=== PATIENT | male | born 1945 | race Hispanic/Latino ===

== ENCOUNTER 2022-01-31 06:35 | Day surgery (SDC) | payer MEDICARE ==
[2022-01-31] MEDS ORDERED: ASPIRIN EC 325 MG TAB PO NR (06:52)
[2022-01-31] MEDS ORDERED: SODIUM CHLORIDE 0.9% 500 ML 500 ML IV SCH (07:00)
[2022-01-31 07:31] LABS: Basophils # (Auto) 0.1 K/mm3 (0.0-0.1); Basophils % (Auto) 1.2 % (0.0-1.8); Eosinophils # (Auto) 0.2 K/mm3 (0.0-0.4); Eosinophils % (Auto) 3.1 % (0.0-4.3); Hematocrit 47.5 % (35.5-45.6); Hemoglobin 15.7 gm/dl (11.8-15.2); Lymphocytes # (Auto) 1.5 K/mm3 (1.2-5.4); Lymphocytes % (Auto) 19.5 % (13.4-35.0); Mean Corpuscular HGB Conc 33 % (32-34); Mean Corpuscular Volume 89 fl (84-94); Monocytes # (Auto) 0.6 K/mm3 (0.0-0.8); Monocytes % (Auto) 7.9 % (0.0-7.3); Platelet Count 328 K/mm3 (140-440); Red Blood Count 5.32 M/mm3 (3.65-5.03); Red Cell Distribution Width 13.7 % (13.2-15.2)
[2022-01-31 07:41] LABS: INR 0.94 (0.87-1.13)
[2022-01-31 07:43] LABS: BUN/Creatinine Ratio 24; Blood Urea Nitrogen 19 mg/dL (9-20); Calcium 9.5 mg/dL (8.4-10.2); Hemolysis Index 6
[2022-01-31] MEDS ORDERED: HEPARIN/NS 5000 UNIT/500ML 1,000 ML IR ONE (08:24)
[2022-01-31] MEDS ORDERED: MIDAZOLAM 2 MG/2 ML INJ ONE (08:24)
[2022-01-31] MEDS ORDERED: HEPARIN 10,000 UNITS/10 ML VIAL ONE (08:24)
[2022-01-31] MEDS ORDERED: fentaNYL 100 MCG/2 ML INJ ONE (08:25)
[2022-01-31] MEDS ORDERED: NITROGLYCERIN SYRINGE 3 ML ONE (08:25)
[2022-01-31] MEDS ORDERED: VERAPAMIL 5 MG/2 ML INJ ONE (08:25)
[2022-01-31] MEDS ORDERED: LIDOCAINE (1%) 10 MG/1 ML VIAL 20 ML MDV ONE (08:26)
--- NOTE | 2022-01-31 09:37 | Cardiac Catherization Report ---
DATE OF PROCEDURE: 01/31/2022 CARDIAC CATHETERIZATION REFERRING PHYSICIAN: Dr. Raciel Blank. INDICATIONS FOR PROCEDURE: The patient is a pleasant 76-year-old gentleman with recurrent chest pain, referred for left heart catheterization. Risks, benefits, potential alternatives explained at length prior to obtaining informed consent. PROCEDURE IN DETAIL: The patient was brought to rd lab technician in a postabsorptive state, prepped and draped in sterile fashion. Golden's test in right hand is normal. 2 mL of 2% lidocaine used to anesthetize the right wrist. A standard 6-Indonesian hydrophilic sheath used to cannulate the right radial artery via modified Seldinger technique. All exchanges performed to exchange a J-tip guidewire. JL 3.5 catheter was used to engage the left main. No dampening or ventricularization. Cineangiography performed in multiple projections. JR4 catheter used to cross the aortic valve under fluoroscopic guidance. Left ventriculography performed in their projections via hand injections, catheter flushed. Manual pullback performed with continuous pressure monitoring. Catheter used to engage the right coronary. No dampening or ventricularization. Cineangiography performed in multiple projections. Next, catheter removed from the body of wire, sheath removed. Manual pressure used to achieve hemostasis. I directly supervised the administration of fentanyl and Versed for moderate sedation from 9:00 a.m. to 9:20 a.m. No immediate complications. DATA: Aortic pressure is 110/60, LV pressure is 110, LVEDP of 10 mmHg. Left ventriculography reveals normal systolic performance, estimated ejection fraction 55-60%. No evidence of aortic stenosis. CORONARY ANATOMY: This is a right dominant system. There is a dual ostium of the LAD and left circumflex. No significant disease in the LAD or diagonal system. NEVAEH 3 flow throughout. No significant disease in the left circumflex system diminutive to AV groove circumflex, large OM trunk. Right coronary is a large vessel, courses AV groove, distally bifurcates into posterior and posterolateral branches. No discrete stenoses noted. CONCLUSIONS: 1. No angiographic evidence of significant epicardial coronary artery disease in this right dominant system. 2. Normal left ventricular systolic performance, estimated ejection fraction 55-60%. 3. No evidence of aortic stenosis. 4. Normal LVEDP. RECOMMENDATION: The patient is clinically stable, chest pain free. Standard radial care. Results of procedure explained to the patient and family. All questions and concerns were addressed. Follow up with Dr. Blank in the office. TID: [id number] RECEIPT: [id number] SBM/GO
--- NOTE | 2022-01-31 11:17 | Short Stay Summary ---
Short Stay Documentation Date of service: 01/31/22 - History H&P: obtained from office - Allergies and Medications Current Medications: Allergies No Known Allergies Allergy (Verified 01/31/22 06:50) Home Medications Medication Instructions Recorded Confirmed Last Taken Type Amlodipine Besylate/Benazepril 1 each PO DAILY 01/31/22 01/31/22 01/30/22 History [Amlodipine-Benazepril 10-40 mg] Aspirin/Acetaminophen/Caffeine 2 each PO QID 01/31/22 01/31/22 01/30/22 History [Goody's Ex-Str Powder Packet] Oxymetazoline HCl [Long Acting 1 spray NS BID 01/31/22 01/31/22 01/30/22 History Nasal [place]] Active Medications Sodium Chloride (Nacl 0.9% 500 Ml) 500 mls @ 50 mls/hr IV DIRECT ZELDA Stop: 01/31/22 16:59 Last Admin: 01/31/22 07:43 Dose: 50 mls/hr - Physical exam Integumentary: other (Dressing clean dry and intact with no signs of bleeding or hematoma) - Brief post op/procedure progress note Date of procedure: 01/31/22 Pre-op diagnosis: chest pain Post-op diagnosis: other (Normal coronaries) Anesthesia: local Estimated blood loss: minimal - Hospital course Hospital course: Patient presents today for cardiac cath due to recurrent chest pain. Patient tolerated procedure well without complications. Patient to be discharged home and follow-up with Dr. Bailey as an outpatient - Disposition Condition at discharge: Good Disposition: 01 HOME / SELF CARE / HOMELESS - Discharge Diagnoses (1) Chest pain Status: Acute (2) History of CVA (cerebrovascular accident) Status: Acute (3) History of OK (myocardial infarction) Status: Acute Short Stay Discharge Plan Activity: advance as tolerated Diet: low fat, low cholesterol, low salt Wound: keep clean and dry, per your surgeon's advice Follow up with: SHANIKA BROWN MD [Primary Care Provider] - 7 Days KENDALL MORA MD [Staff Physician] - 02/22/22 11:20 am (Patient follow-up with Dr. Bailey on 02/22/2022 at 11:15 AM at our [place] location. Phone #[phone])
[2022-01-31 12:06] VITALS: BP 111/72
--- NOTE | 2022-02-01 10:48 | Electrocardiograph Report ---
[facility] Test Date: 2022-01-31 Test Time: 08:02:55 Pat Name: Manjinder STUART Department: Room: Gender: M Prosthodontist: MIMI : 1945 Requested By: JUAN C BROWN Order Number: [id number] Reading MD: Juan C Brown Measurements Intervals [place] Rate: 68 P: -4 NH: 167 QRS: -33 QRSD: 119 T: -17 QT: 410 QTc: 437 Interpretive Statements Sinus rhythm Nonspecific intraventricular conduction delay Nonspecific T abnormalities, inferior leads No previous ECG available for comparison Electronically Signed On 02-01-2022 10:47:53 EDT by Juan C Brown
== END 2022-01-31 12:45 | disposition home or self-care (01) ==
LOC: CATHLABREC 06:35
PROVIDERS: ATTEND Internal Medicine
DX: R07.89 Other chest pain (principal); I25.2 Old myocardial infarction; M19.90 Unspecified osteoarthritis, unspecified site; Z87.891 Personal history of nicotine dependence; Z79.899 Other long term (current) drug therapy; Z79.82 Long term (current) use of aspirin; Z98.890 Other specified postprocedural states; Z86.73 Personal history of transient ischemic attack (TIA), and cerebral infarction without residual deficits
CPT/HCPCS: 36415; 80048; 85025; 85610; 85730; 93005; 93458; 99156; C1894; J1644; J1815; J2250; J3010; J7040; Q9967

== ENCOUNTER 2022-03-05 16:43 | Emergency (ER) | payer MEDICARE ==
[2022-03-05] MEDS ORDERED: ONDANSETRON 4 MG/2 ML INJ IV ONE (18:01)
[2022-03-05] MEDS ORDERED: MORPHINE 4 MG/1 ML INJ IV ONE ×2 (18:01→20:16)
[2022-03-05] MEDS ORDERED: SODIUM CHLORIDE 0.9% 1000 ML 1,000 ML IV ONE (18:01)
--- NOTE | 2022-03-05 18:07 | Emergency Department Report ---
<XOCHITL TUBBS - Last Filed: 03/05/22 18:03> ED Abdominal Pain HPI - General Chief Complaint: Abdominal Pain Stated Complaint: LOWER RT QUAD PAIN Time Seen by Provider: 03/05/22 17:55 Source: EMS Mode of arrival: Stretcher Limitations: No Limitations - History of Present Illness Initial Comments: Patient is 76 years old male with history of stroke and recent hernia repair at [facility] by Dr. Schroeder. Surgery was done on February 28 of this year. Patient brought to the emergency room via EMS from home for evaluation of sudden onset of right upper and lower abdominal pain that radiated down to his groin area. Patient denied any fever or chills. Patient is also complaining of bilateral lower extremity swelling since surgery. He denied any chest pain or shortness of breath. MD Complaint: abdominal pain -: This morning Location: RUQ, RLQ Radiation: none Migration to: no migration Quality: sharp Associated Symptoms: denies other symptoms - Related Data Home Medications Medication Instructions Recorded Confirmed Last Taken Amlodipine Besylate/Benazepril 1 each PO DAILY 01/31/22 01/31/22 03/05/22 07:00 [Amlodipine-Benazepril 10-40 mg] Aspirin/Acetaminophen/Caffeine 2 each PO QID 01/31/22 01/31/22 03/05/22 12:15 [Natividad's Ex-Str Powder Packet] Oxymetazoline HCl [Long Acting 1 spray NS BID 01/31/22 01/31/22 03/05/22 06:00 Nasal [place]] Previous Rx's Medication Instructions Recorded Last Taken Type Omeprazole Magnesium [PriLOSEC Otc] 20 mg PO QDAY 30 Days #30 tab NS 03/05/22 Unknown Rx Ondansetron [Zofran Odt] 4 mg PO Q8HR 5 Days #15 tab.rapdis 03/05/22 Unknown Rx NS Allergies Allergy/AdvReac Type Severity Reaction Status Date / Time No Known Allergies Allergy Verified 01/31/22 06:50 ED Review of Systems Comment: All other systems reviewed and negative Constitutional: denies: chills, fever Respiratory: denies: cough, shortness of breath, SOB with exertion, SOB at rest Cardiovascular: denies: chest pain, palpitations Gastrointestinal: abdominal pain. denies: nausea, vomiting, diarrhea, constipation, hematemesis, melena, hematochezia Musculoskeletal: denies: back pain Neurological: denies: headache, weakness, numbness, paresthesias, confusion ED Past Medical Hx - Past Medical History Hx Hypertension: Yes Hx Heart Attack/AMI: Yes Hx Arthritis: Yes Additional medical history: mi - Social History Smoking Status: Never Smoker - Medications Home Medications: Home Medications Medication Instructions Recorded Confirmed Last Taken Type Amlodipine Besylate/Benazepril 1 each PO DAILY 01/31/22 01/31/22 03/05/22 07:00 History [Amlodipine-Benazepril 10-40 mg] Aspirin/Acetaminophen/Caffeine 2 each PO QID 01/31/22 01/31/22 03/05/22 12:15 History [Natividad's Ex-Str Powder Packet] Oxymetazoline HCl [Long Acting 1 spray NS BID 01/31/22 01/31/22 03/05/22 06:00 History Nasal [place]] Omeprazole Magnesium [PriLOSEC Otc] 20 mg PO QDAY 30 Days #30 tab NS 03/05/22 Unknown Rx Ondansetron [Zofran Odt] 4 mg PO Q8HR 5 Days #15 tab.rapdis 03/05/22 Unknown Rx NS ED Physical Exam - General Limitations: No Limitations General appearance: alert, in no apparent distress - Head Head exam: Present: atraumatic, normocephalic, normal inspection - Eye Eye exam: Present: normal appearance - ENT ENT exam: Present: normal exam, normal orophraynx, mucous membranes moist - Neck Neck exam: Present: normal inspection, full ROM. Absent: tenderness, meningismus - Respiratory Respiratory exam: Present: normal lung sounds bilaterally - Cardiovascular Cardiovascular Exam: Present: regular rate, normal rhythm, normal heart sounds - GI/Abdominal GI/Abdominal exam: Present: soft, tenderness, normal bowel sounds, other (Recent abdominal surgical wound.). Absent: distended, guarding, rebound, rigid, organomegaly, mass, bruit, pulsatile mass - Extremities Exam Extremities exam: Present: pedal edema - Back Exam Back exam: Present: normal inspection, full ROM. Absent: CVA tenderness (R), CVA tenderness (L) - Neurological Exam Neurological exam: Present: alert, oriented X3, CN II-XII intact - Psychiatric Psychiatric exam: Present: normal mood - Skin Skin exam: Present: warm, intact, normal color ED Disposition Clinical Impression: Postoperative hernia Abdominal pain Qualifiers: Abdominal location: lower abdomen, unspecified Qualified Code(s): R10.30 - Low er abdominal pain, unspecified Disposition: HOME / SELF CARE / HOMELESS Condition: Stable Instructions: Abdominal Pain, Adult, Cafm-rd-Cjdc, Open Hernia Repair, Adult, Care After, Socc-eo-Hahr Additional Instructions: Continue your postoperative care instruction by your surgeon Increase your daily fluid to help your hydration Call and schedule follow-up with your surgeon in the next 3 to 5 days for progress Please do not hesitate to call your surgeon or return to emergency room if your symptoms worsen Prescriptions: Omeprazole Magnesium [PriLOSEC Otc] 20 mg PO QDAY 30 Days #30 tab NS Ondansetron [Zofran Odt] 4 mg PO Q8HR 5 Days #15 tab.rapdis NS Referrals: PRIMARY CARE, [Primary Care Provider] - 3-5 Days <LINDSEY PHILLIPS - Last Filed: 03/05/22 23:08> ED Review of Systems ROS: Stated complaint: LOWER RT QUAD PAIN Other details as noted in HPI ED Course Vital Signs 03/05/22 03/05/22 17:48 17:54 Temperature 98.9 F Pulse Rate 90 98 H Respiratory 17 17 Rate Blood Pressure 127/69 Blood Pressure 140/77 [Right] O2 Sat by Pulse 99 97 Oximetry - Reevaluation(s) Reevaluation #1: 03/05/22 23:03 signed out to me with abdominal pain while waiting for CT abd/pel -- noted with FINDINGS: LOWER CHEST: No significant abnormality. LIVER: Simple 2.4 cm cyst left hepatic lobe. Multiple tiny subcentimeter cyst right hepatic lobe. GALLBLADDER: No significant abnormality. BILE DUCTS: No significant abnormality. PANCREAS: No significant abnormality. SPLEEN: No significant abnormality. ADRENALS: No significant abnormality. RIGHT KIDNEY and URETER: No significant abnormality. LEFT KIDNEY and URETER: No significant abnormality. STOMACH and SMALL BOWEL: No significant abnormality. COLON: No significant abnormality. APPENDIX: No significant abnormality. PERITONEUM: No free fluid. No free air. No fluid collection. LYMPH NODES: No significant adenopathy. AORTA and ARTERIES: No significant abnormality. IVC and VEINS: No significant abnormality. URINARY BLADDER: No significant abnormality. REPRODUCTIVE ORGANS: Enlarged heterogeneous prostate measures 4.5 cm. ADDITIONAL FINDINGS: Bilateral inguinal herniorrhaphy surgery. Moderate amount of fluid within the right inguinal canal could represent postoperative seroma, however, residual hernia cannot be excluded. The hernia does not contain any loops of bowel. SKELETAL SYSTEM: No significant abnormality. IMPRESSION: 1. Fluid-filled right inguinal canal from recent surgery. Residual fluid/fat- containing hernia cannot be excluded on this postop study. 2. No free intraperitoneal air or other acute inflammatory process 03/05/22 23:07 Pt reassured and discharged home on Zofran and Prilosec with warning to call and follow up with her surgeon for further evaluation and treatment ED Medical Decision Making - Lab Data Result diagrams: 03/05/22 18:08 03/05/22 18:08 Critical care attestation.: If time is entered above; I have spent that time in minutes in the direct care of this critically ill patient, excluding procedure time. ED Disposition Is pt being admited?: No Does the pt Need Aspirin: No Time of Disposition: 23:07
[2022-03-05 18:35] LABS: Basophils # (Auto) 0.1 K/mm3 (0.0-0.1); Basophils % (Auto) 0.9 % (0.0-1.8); Eosinophils # (Auto) 0.5 K/mm3 (0.0-0.4); Eosinophils % (Auto) 5.2 % (0.0-4.3); Hematocrit 44.9 % (35.5-45.6); Hemoglobin 14.8 gm/dl (11.8-15.2); Lymphocytes # (Auto) 1.3 K/mm3 (1.2-5.4); Lymphocytes % (Auto) 13.9 % (13.4-35.0); Mean Corpuscular HGB Conc 33 % (32-34); Mean Corpuscular Volume 91 fl (84-94); Monocytes # (Auto) 0.5 K/mm3 (0.0-0.8); Monocytes % (Auto) 5.2 % (0.0-7.3); Platelet Count 377 K/mm3 (140-440); Red Blood Count 4.95 M/mm3 (3.65-5.03); Red Cell Distribution Width 13.5 % (13.2-15.2)
--- NOTE | 2022-03-05 18:47 | XRay Report ---
CHEST 1 VIEW 03/05/2022 5:38 PM INDICATION / CLINICAL INFORMATION: Shortness of breath. COMPARISON: None available. FINDINGS: SUPPORT DEVICES: None. HEART / MEDIASTINUM: No significant abnormality. LUNGS / PLEURA: Low lung volumes without focal pulmonary abnormality. No pneumothorax. ADDITIONAL FINDINGS: No significant additional findings. IMPRESSION: 1. No acute findings. Signer Name: Lino Juarez MD Signed: 03/05/2022 6:42 PM Workstation Name: [id number]
[2022-03-05 18:48] LABS: BUN/Creatinine Ratio 18; Blood Urea Nitrogen 14 mg/dL (9-20); Hemolysis Index 10
[2022-03-05 18:50] LABS: INR 0.86 (0.87-1.13)
[2022-03-05 18:51] LABS: Partial Thromboplastin Time 29.7 Sec. (24.2-36.6)
[2022-03-05 19:01] LABS: Alanine Aminotransferase 15 units/L (7-56); Albumin 4.6 g/dL (3.9-5)
[2022-03-05 19:04] LABS: Bilirubin,Direct < 0.2 mg/dL (0-0.2)
--- NOTE | 2022-03-05 19:19 | Vascular Lab Report ---
DUPLEX DOPPLER LOWER EXTREMITY VEINS, BILATERAL INDICATION / CLINICAL INFORMATION: Bilateral lower extremity swelling s/p hernia repair. TECHNIQUE: Duplex doppler imaging was performed through the veins of both lower extremities using raiza ous compression and other maneuvers. COMPARISON: None available. FINDINGS: RIGHT COMMON FEMORAL VEIN: Negative. RIGHT FEMORAL VEIN: Negative. RIGHT POPLITEAL VEIN: Negative. RIGHT CALF VEINS: Negative. LEFT COMMON FEMORAL VEIN: Negative. LEFT FEMORAL VEIN: Negative. LEFT POPLITEAL VEIN: Negative. LEFT CALF VEINS: Negative. ADDITIONAL FINDINGS: None. IMPRESSION: 1. No sonographic evidence for DVT in either lower extremity. Signer Name: Coni Saenz MD Signed: 03/05/2022 7:14 PM Workstation Name: [id number]
[2022-03-05 20:36] LABS: Bilirubin,Urine NEG (Negative); Blood,Urine NEG (Negative); Color,Urine Yellow (Yellow); Mucus,Urine FEW /HPF; Protein,Urine <15 mg/dL mg/dL (Negative); RBC,Urine < 1.0 /HPF (0.0-6.0); Urobilinogen,Urine < 2.0 mg/dL (<2.0); WBC,Urine < 1.0 /HPF (0.0-6.0)
[2022-03-05] MEDS ORDERED: ONDANSETRON 4 MG/2 ML INJ ONE (20:48)
--- NOTE | 2022-03-05 22:56 | Cat Scan Report ---
CT ABDOMEN AND PELVIS WITH CONTRAST INDICATION: abdominal pain. Hernia surgery 02/28/2022 TECHNIQUE: Axial CT images were obtained through the abdomen and pelvis after 100 cc Omni [address] scans at this location are performed using CT dose reduction for ALARA by means of automated expos ure control. COMPARISON: None available. FINDINGS: LOWER CHEST: No significant abnormality. LIVER: Simple 2.4 cm cyst left hepatic lobe. Multiple tiny subcentimeter cyst right hepatic lobe. GALLBLADDER: No significant abnormality. BILE DUCTS: No significant abnormality. PANCREAS: No significant abnormality. SPLEEN: No significant abnormality. ADRENALS: No significant abnormality. RIGHT KIDNEY and URETER: No significant abnormality. LEFT KIDNEY and URETER: No significant abnormality. STOMACH and SMALL BOWEL: No significant abnormality. COLON: No significant abnormality. APPENDIX: No significant abnormality. PERITONEUM: No free fluid. No free air. No fluid collection. LYMPH NODES: No significant adenopathy. AORTA and ARTERIES: No significant abnormality. IVC and VEINS: No significant abnormality. URINARY BLADDER: No significant abnormality. REPRODUCTIVE ORGANS: Enlarged heterogeneous prostate measures 4.5 cm. ADDITIONAL FINDINGS: Bilateral inguinal herniorrhaphy surgery. Moderate amount of fluid within the ri ght inguinal canal could represent postoperative seroma, however, residual hernia cannot be excluded. The hernia does not contain any loops of bowel. SKELETAL SYSTEM: No significant abnormality. IMPRESSION: 1. Fluid-filled right inguinal canal from recent surgery. Residual fluid/fat-containing hernia canno t be excluded on this postop study. 2. No free intraperitoneal air or other acute inflammatory process Signer Name: Roddy Elias MD Signed: 03/05/2022 10:52 PM Workstation Name: [id number]
[2022-03-06 00:16] VITALS: BP 124/71
== END 2022-03-05 23:05 | disposition home or self-care (01) ==
LOC: ED 16:43
DX: K43.2 Incisional hernia without obstruction or gangrene (principal); R10.9 Unspecified abdominal pain; I10 Essential (primary) hypertension; I21.9 Acute myocardial infarction, unspecified; M19.90 Unspecified osteoarthritis, unspecified site; Z79.899 Other long term (current) drug therapy
CPT/HCPCS: 36415; 71045; 74177; 80048; 80076; 81001; 83690; 83880; 85025; 85610; 85730; 93970; 96361; 96374; 96375; 96376; 99285; J2270; J2405; J7030; Q9967